=== PATIENT | male | born 1960 | race Two or more races ===

== ENCOUNTER 2022-11-15 14:39 | Emergency (ER) | payer BC, OTHER ==
[~2022-11-15] VITALS: Ht 175.3 cm; Wt 87.7 kg
[2022-11-15 16:52] VITALS: BP 136/78; PULSE 71; RESP 14; TEMP 98.6; O2SAT 96
[2022-11-15] MEDS ORDERED: TETANUS-DIPTH-ACEL PERTUSSIS 0.5ML SYR Tdap IM ONE (17:30)
[2022-11-15] MEDS ORDERED: CEPH500C PO (18:12)
== END 2022-11-15 18:13 | disposition home or self-care (01) ==
LOC: ER 14:39
DX: S61.432A Puncture wound without foreign body of left hand, initial encounter (principal); W45.8XXA Other foreign body or object entering through skin, initial encounter; Y93.89 Activity, other specified; Y92.89 Other specified places as the place of occurrence of the external cause; Y99.8 Other external cause status
CPT/HCPCS: 73130; 90471; 90715